=== PATIENT | male | born 1945 | race Caucasian/White ===

== ENCOUNTER → 2020-07-01 13:56 | Outpatient (CLI) | payer MEDICARE, SELFPAY ==
--- NOTE | 2020-07-01 14:00 | CT_ITS ---
HISTORY: Osteoarthritis, right rotator cuff tear, no known injury. Hx prostate cancer. [facility] protocol. TECHNIQUE: Noncontrast bone protocol CT of the right shoulder was performed without contrast per [facility] protocol. 2D reformats were performed by the technologist. Number of images including paperwork: [phone]. A radiation dose optimization technique was used for this scan. COMPARISON: None FINDINGS: BONES: No acute fracture. JOINTS: Severe degenerative changes of the glenohumeral joint are noted with joint space narrowing, subchondral sclerosis, osteophyte formation and joint bodies. Small joint effusion. Periarticular faint calcifications. Moderate degenerative changes of the acromioclavicular joint. Narrowing of the acromiohumeral distance consistent with chronic rotator cuff degeneration. Degenerative changes of the spine partially visible. SOFT TISSUES: Unremarkable. FOREIGN BODY: No radiopaque foreign body. CT/Extremity Upper without Contra IMPRESSION: 1. 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 2. 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 Individualized dose optimization techniques were used for this CT. at 0743 Reported and signed by: Bhavana Gonzáles MD Electronically Signed: Bhavana Gonzáles MD at 7:43 EDT Tel , Service support ,
== END ==
PROVIDERS: Referring Provider Specialist; Visit Provider Specialist
DX: M75.121 Complete rotator cuff tear or rupture of right shoulder, not specified as traumatic (principal); M19.211 Secondary osteoarthritis, right shoulder
CPT/HCPCS: 73200